=== PATIENT | female | born 1975 | race Hispanic/Latino ===

== ENCOUNTER 2023-04-24 15:13 | Emergency (ER) | payer SELFPAY ==
[~2023-04-24] VITALS: Ht 162.6 cm; Wt 101.0 kg
[2023-04-24] VITALS (10 sets, daily range): BP systolic 143–180; BP diastolic 71–154
[2023-04-24 16:01] LABS: BASO% 0.3 % (0-3); EOS% 0.9 % (0-8); HEMATOCRIT 33.3 % (37.0-47.0); HEMOGLOBIN 11.4 g/dl (12.0-16.0); IMMATURE GRANULOCYTES 0.1 % (0.0-5.0); MEAN CELL VOLUME 88.1 fL CALC (80.0-100.0); MEAN CORPUSCULAR HGB 30.2 pG CALC (26.0-32.0); MEAN CORPUSCULAR HGB CONC 34.2 g/dL CAL (32.0-36.0); MONO% 6.5 % (2-13); NEUT# 5.17 thou/uL (2.00-7.15); NEUT% 70.2 % (42-76); RED BLOOD COUNT 3.78 mill/uL (4.20-5.60); RED CELL DISTRI WIDTH 12.2 % (11.5-15.5)
[2023-04-24 16:24] LABS: ALBUMIN 3.2 g/dL (3.2-5.0); BILIRUBIN, TOTAL 0.7 mg/dL (0.02-1.3); CREATININE 1.4 mg/dL (0.5-1.0); POTASSIUM 4.7 mmol/l (3.5-5.1); TOTAL PROTEIN 6.4 g/dL (6.3-8.2)
[2023-04-24 16:34] LABS: CHOLESTEROL HDL RATIO 11.5 (<4.4 (CALC))
[2023-04-24] MEDS ORDERED: CARAFATE1 GM PO (18:31)
[2023-04-24] MEDS ORDERED: PROTONIX40 M2 PO ×2 (18:31→18:34)
== END 2023-04-24 20:12 | disposition home or self-care (01) | DRG 392 ==
LOC: ED 15:13
PROVIDERS: Nurse Practitioner
DX: R10.12 Left upper quadrant pain (principal); R10.13 Epigastric pain; E11.65 Type 2 diabetes mellitus with hyperglycemia; K22.89 Other specified disease of esophagus
CPT/HCPCS: Q9967; S0164